=== PATIENT | female | born 1980 | race Caucasian/White ===

== ENCOUNTER 2018-12-02 17:45 | Inpatient (IN) | payer OTHER ==
[2018-12-02 19:02] LABS: Troponin I 0.359 ng/mL (< 0.028)
[2018-12-02 21:09] LABS: CKMB 4.5 ng/mL (0-6.6)
[2018-12-02] MEDS ORDERED: hydrALAZINE 20 MG/ML VIAL SLOW IVP PRN (22:13)
[2018-12-02] MEDS ORDERED: Acetaminophen 325 MG TAB PO PRN (22:13)
[2018-12-02] MEDS ORDERED: Ondansetron PF 4 MG/2 ML Vial IVP PRN (22:13)
[2018-12-02] MEDS ORDERED: Nitroglycerin 0.4 MG TAB (25 Tab Bottle) PO PRN (22:13)
[2018-12-02] MEDS ORDERED: Nicotine 14 MG PATCH TD SCH (22:13)
--- NOTE | 2018-12-02 22:26 | HP ---
PRIMARY CARE PHYSICIAN: None. CHIEF COMPLAINT: Chest pain. HISTORY OF PRESENT ILLNESS: The patient is a 38-year-old female with past medical history of smoking, who presents to the emergency department for chest pain. The patient reported that her chest pain started like around 1:00 pm, was substernal and resolved after 3 hours. The patient was seen at the outside ER and was given aspirin and one full dose of Lovenox. The patient's troponin was noted to be positive and the patient was transferred to the ER for further management. The patient reports that she smokes half a pack per day. The patient denies any illicit drugs or alcohol. The patient recently had a baby around 6 weeks ago. The patient had a and she reported that her hemoglobin at the time of discharge was 5.8. The patient is not on iron supplement. The patient is taking vitamins. The patient follows up and her last hemoglobin was 7.0. The patient denies any shortness of breath, abdominal pain, nausea, vomiting, or dizziness at this point. PAST MEDICAL HISTORY: and current smoker. MEDICATION: vitamins. PAST SURGICAL HISTORY: . FAMILY HISTORY: Grandfather had heart problems. ALLERGIES: SHE HAS NO KNOWN ALLERGIES TO DRUGS. REVIEW OF SYSTEMS: A 10-point review of system negative other than mentioned in the HPI. PHYSICAL EXAMINATION: VITAL SIGNS: Blood pressure is 166/86, pulse 85, respiration rate 16, and O2 saturation 99% on room air. GENERAL: The patient is alert and cooperative. EYES: Extraocular movement intact. EARS AND NOSE: No bleeding noted. MOUTH: No exudate. NECK: No lymphadenopathy noted. CARDIOVASCULAR: Regular rate and rhythm. No murmurs, rubs, or gallops noted. LUNGS: Clear bilaterally. No wheezes noted. ABDOMEN: Soft, nontender. EXTREMITIES: No edema noted. NEUROLOGICAL: The patient is alert. SKIN: No rashes noted. LABORATORY DATA: Reviewed. The patient's CBC is significant for hemoglobin of 7.7, platelets 390. The rest of the CBC is unremarkable. D-dimer 0.44. Chemistry significant for sodium 139, potassium 3.8, chloride 106, bicarb 23, BUN 9, creatinine 0.71, glucose 93, troponin 0.359 on admission and now 0.618. EKG reviewed, normal sinus rhythm. Urine negative for any significant leukocyte esterase, nitrites, or bacteria. Toxicology screen negative. The patient's CT angiogram of the chest negative for PE. ASSESSMENT: 1. Non-ST elevation myocardial infarction. 2. Elevated blood pressure without diagnosis of hypertension. 3. Anemia due to blood loss 4. Current Smoker PLAN: 1. The patient's chest pain has resolved, but her troponins continues to increase. The patient was given full dose of Lovenox and aspirin at the outside ER. We will continue to trend troponin. We will continue Lovenox b.i.d. Echocardiogram ordered. The patient on tele. Cardiology consult placed. 2. Elevated blood pressure without diagnosis of hypertension. We will add hydralazine p.r.n. 3. Anemia is likely from acute blood loss from her recent surgery per patient, it seems that her hemoglobin has been improving. We will add iron tablets plus vitamin C. The patient is already on vitamins. 4. Smoking and current smoker. Counseled. Nicotine patch added if the patient is agreeable. 5. The patient is a full code. Medical power of litigation attorney associate is mother. 6. DVT prophylaxis, addressed with [facility]. Job ID: [id number] MTDD
[2018-12-02] MEDS: Sodium Chloride 0.9% 1,000 ML IV SCH ×2 (22:49→22:53)
[2018-12-03 00:38] LABS: CKMB 4.2 ng/mL (0-6.6)
[2018-12-03 06:29] LABS: #Basophils 0.1 thou/uL (0.0-0.2); #Eosinphils 0.3 thou/uL (0.0-0.7); #Monocytes 0.5 thou/uL (0.11-0.59); #Neutrophils 3.6 thou/uL (1.40-6.50); %Basophils 0.8 % (0.0-1.0); %Eosinophils 4.5 % (0.0-10.0); %Lymphocytes 31.4 % (21.0-51.0); %Neutrophils 55.2 % (42.0-75.0); Hemoglobin 7.3 g/dL (12.0-16.0); Mean Corpuscular HGB CONC 27.6 g/dL (32.0-36.0); Mean Corpuscular Hemoglobin 16.4 pg (27.0-31.0); Mean Corpuscular Volume 59.4 fL (78.0-98.0); Platelet Count 367 thou/uL (130-400); RBC Distribution Width 18.8 % (11.5-14.5); Red Blood Cell (RBC) Count 4.43 mill/uL (4.20-5.40); Reflex for Review?? NO; White Blood Cell (WBC) Count 6.4 thou/uL (4.8-10.8)
[2018-12-03 06:34] LABS: Anion Gap 11 mmol/L (10-20); BUN (Urea Nitrogen) 8 mg/dL (7.0-18.7); Calc. Creatinine Clearance 149 mL/min (70-130); Carbon Dioxide 25 mmol/L (22-29); Cardiac Risk 4.7 (Less than 4.5); Chloride 108 mmol/L (98-107); Cholesterol 173 mg/dl (< 200 Desired); Estimated GFR-MDRD Greater than 90; Glucose 78 mg/dL (70-105); HDL Cholesterol 37 mg/dL (>60 Neg Risk); LDL Cholesterol, Calculated 114 mg/dL; Potassium 3.9 mmol/L (3.5-5.1); Sodium 140 mmol/L (136-145); Triglycerides 109 mg/dL (Less than 150)
[2018-12-03 06:40] LABS: Critical Call Chem Troponin I RESULT DECREASING
[2018-12-03 06:58] LABS: CKMB 3.3 ng/mL (0-6.6)
[2018-12-03] MEDS ORDERED: Enoxaparin Sodium 80 MG/0.8 ML SYRINGE SC SCH (09:00)
[2018-12-03] MEDS ORDERED: Ascorbic Acid 500 mg Chewable Tablet PO SCH (09:00)
[2018-12-03] MEDS: Ferrous Sulfate 325 MG TAB PO SCH ×2 (09:09→17:53)
--- NOTE | 2018-12-03 15:39 | CON ---
DATE OF CONSULTATION: 12/03/2018 REASON FOR CONSULTATION: Chest pain. HISTORY OF PRESENT ILLNESS: Ms. Bella is a very pleasant 38-year-old white female, who comes to the hospital for chest pain. She is 6 weeks . She stated that 2 days ago, she had fever, chills, and she had diarrhea for a day, even her new baby also had diarrhea as well. Yesterday, she had an episode of midsternal chest pain, would not radiate, just stay there at the same location. She noted that it had been an hour and the pain would not go away, so she decided to come in for evaluation. She went to the Medicine in the ER, where EKG was done, which was unremarkable and she was transferred here for further evaluation and care. During her admission, blood work was drawn and troponins were drawn and they have been elevated, so Cardiology was consulted. Ms. Bella has not had any chest pain since yesterday when she went to the ER. She denies any shortness of breath. No lightheadedness. No syncope or presyncope. She tells me that the pain was a little bit positional, it would get better by sitting. PAST MEDICAL HISTORY: . OUTPATIENT MEDICATIONS: vitamins. ALLERGIES: NO KNOWN DRUG ALLERGIES. FAMILY HISTORY: No known early coronary artery disease. REVIEW OF SYSTEMS: A 12-point review of systems was done and was all negative unless stated in the history of present illness. PHYSICAL EXAMINATION: VITAL SIGNS: Temperature 98.1, pulse 72, respiratory rate 18, saturating 96% on room air, and blood pressure 145/86. GENERAL: Awake, alert, and oriented x3. No distress. HEENT: Normocephalic and atraumatic. NECK: Supple. LUNGS: Clear. CARDIOVASCULAR: S1 and S2. No S3 or S4. No murmurs. ABDOMEN: Soft. Positive bowel sounds. EXTREMITIES: No edema. SKIN: Warm and dry. LABORATORY DATA: Laboratory work was reviewed. CBC with a white count of 6.4, hemoglobin of 7.3, hematocrit of 26, and platelet count of 367. Chemistries; troponin is 0.03, then 0.6, then 0.67, then 0.7, then 0.6. Normal CK-MB. Cholesterol at 173, LDL of 114, and HDL of 37. Normal GFR. IMAGING STUDIES: EKG was reviewed, normal sinus rhythm. No ischemic changes. CT of the chest, no evidence of PE. No other issue. Chest x-ray was reviewed. ASSESSMENT: 1. Chest pain. 2. Elevated troponins. 3. Anemia. PLAN: 1. Hemoglobin was as low as 5 just a few weeks ago. She had to have a few blood transfusions after her , where she lost a lot of blood. At this time, it will be prohibited without blood level to do a heart catheterization. She is not having any more pain. She has just a low level of troponin, which goes more with a leak, this could be related to the viral episode she had with diarrhea. I offered her a heart catheterization, but we would have to do blood transfusions for her. She states that she would like to wait on this. We also offered stress testing, but she would not be able to breast feed for about 2 days after the nuclear stress study and she declined for now. She states she would like to wait. She wants to come back as an outpatient and do this in outpatient. She states that if her chest pain recurs, she will definitely come back in without hesitancy and we will offer further risk stratification at this time. 2. Echocardiogram was reviewed. Her EF is completely normal with normal diastolic function, which would go against this being acute coronary syndrome. More than likely myopericarditis from the diarrheal infection she had, hopefully this has settled, and then it will not recur again. 3. We will plan on seeing her back in 2 months in the office. She may be discharged home today. 4. If she comes back to the hospital with chest pain, we will plan heart catheterization. She will need 2 units of blood before that and she is in agreement to this. Thank you for letting us to take care of your patient. We will sign off. Please call with any questions. Plan is to follow up in 1 month and schedule outpatient stress test. Job ID: [id number]
[2018-12-03 16:52] VITALS: BP 127/74; TEMP 98.4
--- NOTE | 2018-12-03 18:58 | DIS ---
DATE OF ADMISSION: 12/02/2018 DATE OF DISCHARGE: 12/03/2018 PRIMARY CARE PROVIDER: None. DISCHARGE DIAGNOSES: 1. Chest pain. 2. Elevated troponin, most likely secondary to recent viral episode with diarrhea. CONDITION OF PATIENT ON THE DAY OF DISCHARGE: Stable. I assessed Ms. Bella on the day of discharge. She denies any chest pain or shortness of breath. Vital signs are stable. S1 and S2 are heard, regular. Lungs are clear to auscultation bilaterally. CONSULTATIONS DURING THIS HOSPITALIZATION: Cardiology, Dr. Morales. DISCHARGE MEDICATIONS: 1. Multivitamins 1 tablet daily. 2. Aspirin 81 mg daily. 3. Coreg 3.125 mg two times a day. HOSPITAL COURSE: Ms. Bella is a pleasant 38-year-old lady, who was admitted to [facility] on December 02, 2018, for chest pain and elevated troponins. Refer to Dr. Ray's history and physical note dated November 2018, for further details. She had 2D echocardiogram, which showed left ventricular ejection fraction of 60% to 65%, normal diastolic function, mild tricuspid regurgitation, and trace mitral regurgitation. Her symptoms resolved. She was seen by Cardiology Service. It was felt that the elevated troponins were likely secondary to recent viral infection. She has been started on aspirin and beta morena. Cardiology Service will follow up with her as outpatient. They did offer cardiac catheterization and stress testing, but the patient did not wish to have these procedures done at this time since she will need packed RBC transfusion prior to cardiac cath and would not be able to breast-feed her baby for a couple of days if she were to have the stress test. She is being discharged home in a stable condition. She is advised to follow up with her primary care provider as well as Cardiology Service. Many thanks for allowing me to participate in Ms. Bella's care. Please feel free to contact me with any questions or concerns. DISCHARGE DESTINATION: Home. TIME SPENT: Total amount of time spent coordinating this discharge: 32 minutes. Job ID: [id number] MTDD
== END 2018-12-03 18:25 | disposition home or self-care (01) | DRG 281 ==
LOC: ERS 17:45 → 2NO 22:09
PROVIDERS: ADMIT Family Medicine; ATTEND Family Medicine
PROC: 30233N1 Transfusion of Nonautologous Red Blood Cells into Peripheral Vein, Percutaneous Approach (ICD-10-PCS; principal; 2018-12-02)
DX: I21.4 Non-ST elevation (NSTEMI) myocardial infarction (principal); D62 Acute posthemorrhagic anemia; R03.0 Elevated blood-pressure reading, without diagnosis of hypertension; F17.210 Nicotine dependence, cigarettes, uncomplicated
CPT/HCPCS: 36415; 80048; 80061; 82553; 84484; 85025; 93005; 93306; 94760; 96360; 96361; J1650